=== PATIENT | male | born 2000 | race Caucasian/White ===

== ENCOUNTER 2021-06-01 16:59 | Emergency (ER) | payer OTHER ==
[2021-06-01 17:24] LABS: CHLORIDE,CL 103 mmol/L (98-107); SODIUM,NA 143 mmol/L (136-145)
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
[2021-06-01] MEDS: Ketorolac 10 MG Tab PO ONE (18:09)
[2021-06-01] MEDS: Cyclobenzaprine 10 MG Tab PO ONE (18:09)
== END 2021-06-01 18:13 | disposition home or self-care (01) ==
LOC: LL.ED 16:59
DX: S00.31XA Abrasion of nose, initial encounter (principal); S70.211A Abrasion, right hip, initial encounter; S20.411A Abrasion of right back wall of thorax, initial encounter; S60.512A Abrasion of left hand, initial encounter; S60.511A Abrasion of right hand, initial encounter; V69.9XXA Occupant (driver) (passenger) of heavy transport vehicle injured in unspecified traffic accident, initial encounter; Y92.410 Unspecified street and highway as the place of occurrence of the external cause
CPT/HCPCS: 36415; 71045; 72040; 74019; 80053; 81001; 85025; 99283; 99284; A9270